=== PATIENT | female | born 1940 | race Caucasian/White ===

== ENCOUNTER 2024-07-17 22:24 | Emergency (ER) | payer MEDICARE, SELFPAY ==
[2024-07-17 22:28] VITALS: BP 123/51; BMI 25.6
[2024-07-17 22:29] VITALS: BP 123/51
[2024-07-17 23:00] VITALS: BP 137/74
--- NOTE | 2024-07-17 23:18 | ED.GENMED ---
History of Present Illness
General
Chief Complaint: Fall
Source: patient and jail records
Exam Limitations: none
Time Seen by Provider: 07/17/24 22:45
Nursing documentation reviewed up to this point in time: agreed with
History of Present Illness
History of Present Illness:
Patient is a 4-year-old female from a local jail who presents to the emergency department after being found on the floor and unwitnessed fall complaining of right hip pain. Patient denies any headache, neck pain or back pain. Patient
denies chest pain, shortness of breath, abdominal pain, nausea or vomiting.
Past History
Past History
ED Past Medical History: HTN, Hypothyroidism and Other (Dementia, depression)
Social History
Tobacco: Non-smoker
Living: jail
Review of Systems
Review of Systems
Unable to obtain full review of systems at this time due to: dementia
All Other Systems: Not applicable
Phy Exam
Physical Exam
Physical Exam:
Physical Exam
General: moderate distress, alert and appropriate, well nourished, well hydrated
HENT: Normocephalic and nontender, supple with no tracheal deviation or contusion
Eyes: Clear sclera, conjuctiva without injection
Heart: Regular rhythm and rate. No S3, S4. No murmur. No NVD
Lungs: No respiratory distress, no stridor, lung sounds clear and equal bilaterally, chest wall nontender
Abdomen: Soft, nontender, BS good
Neuro: Alert and oriented to person, CN II - XII intact, no motor focality
Skin: no wounds
Psychiatric: well kept. interactive and cooperative
Extremities: No edema, cyanosis. Right lower extremity externally rotated and shortened with tenderness over the right hip. Pelvis feels stable
Musculoskeletal: No cervical, thoracic or lumbar spine tenderness
Scores
Heart Failure Risk
Heart Failure Risk Score: Not Applicable
Heart Score for Chest Pain Patients
STEMI patient?: Not applicable
Withdrawal Assessment of Alcohol
Withdrawal Assessment Completed?: Not applicable
Course
Orders/Labs/Results
Orders:
Orders
07/17/24 22:51
Hip, Right 2-3 Views [CR Hip - RT w/wo Pel 2-3 Vw*] Urgent
Comment:
Reason For Exam: pain/tender after fall
Include a pelvis x-ray?: Yes
07/17/24 23:16
HYDROmorphone [Dilaudid] 0.5 mg IV NOW STA
Ondansetron Injectable [Zofran] 4 mg IV NOW STA
07/17/24 23:22
Complete Blood Count/With Diff Urgent
Comprehensive Metabolic Panel Urgent
07/17/24 23:42
Protime/PTT Urgent
Is patient on Coumadin/Warfarin: Unknown
Is the patient on Heparin?: Unknown
Comment: REDRAW
07/18/24 02:00
Flush (0.9% Sodium Chloride) [Flush (Nss)] See Dose Instructions IV PER PROTOCOL
07/18/24 04:54
Femur, Right 2 View [CR Femur - Right Min 2 Vw] Urgent
Comment:
Reason For Exam: fall
Abnormal Lab Results
07/17/24 07/18/24
00:02
MCHC 32.6 L g/dL
(33.0-37.0)
Abs Immat Gran (auto) 0.1 H 10^3/uL
(0-0.05)
Absolute Monos (auto) 0.8 H 10^3/uL
(0.1-0.6)
Immature Gran % 0.6 H %
(0-0.5)
PT 15.0 H Sec
(11.4-14.6)
Glucose 114 H mg/dl
(70-99)
07/17/24 23:22
07/17/24 23:22
Vital Signs
Initial and Last Documented VS:
Initial Vital Signs
Temp Pulse Resp BP Pulse Ox
98.0 F 90 16 123/51 95
07/17/24 22:28 07/17/24 22:28 07/17/24 22:28 07/17/24 22:28 07/17/24 22:28
Last Documented Vital Signs
Temp Pulse Resp BP Pulse Ox
98.0 F 94 19 112/55 99
07/17/24 22:28 07/18/24 04:00 07/18/24 04:00 07/18/24 04:00 07/18/24 03:00
*Radiology
Radiology exam reviewed: preliminary read by ED provider (Periprosthetic fracture of the right femur)
*Pulse Oximetry
Patient hypoxic: no
*EKG
Interpreted by ED Provider?: NA
*Telephone Appointment Clerk Interpretation
Rate: Telephone Appointment Clerk- N/A
*Critical Care Note
Total Time (30-74mins, 75-104mins- exclusive of procedures): Not Applicable
Update Note
Update Note:
Patient will be admitted.
Spoke with the hospitalist who accepted the patient onto their service however orthopedics deferred the patient to go to another hospital where her expertise in orthopedics could handle such a complicated case.
Had a long discussion with the patient's sister unsure whether it they would want her to have surgery or not and would prefer to make the decision after consult with an orthopedist. Additionally the patient does not want any resuscitation. At this
point will admit the patient for hip fracture is decision of what to do.
ED Attending Note
-
Portions of this chart may have been created with voice recognition software.� Occasional wrong word or��sound alike� substitutions may have occurred due to the inherent limitations of voice recognition software.
Discharge Plan
Departure
Patient Disposition: Admit
Date of Disposition: 07/18/24
Time of Disposition: 00:54
Admit to: Med/Surg
Admit to doctor: Hospitalist
Presentation/result/management discussed w/ accepting MD/DO: Hospitalist
Patient with high blood pressure during this ER visit?: No
Condition: Fair
Covid-19: Not Applicable
Discharge Problem:
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
Prescriptions:
No Action
paroxetine HCl [Paxil] 10 mg Tablet
10 mg PO DAILY
donepezil [Aricept] 10 mg Tablet
10 mg PO DAILY
quetiapine 100 mg Tablet
100 mg PO HS
aspirin 81 mg Capsule,Delayed Release(Dr/Ec)
81 mg PO DAILY
levothyroxine [Synthroid] 88 mcg Tablet
88 mcg PO DAILY
rosuvastatin [Crestor] 10 mg Tablet
10 mg PO DAILY
memantine [Namenda] 10 mg Tablet
10 mg PO BID
Referrals:
Carole Broussard CRNP [Family Provider] -
Interventions
Interventions:
*Risk Screen - Suicide Last Done: 07/17/24 22:28
*General Assessment Last Done: 07/17/24 22:28
*Neglect/Abuse Screening Last Done: 07/17/24 22:28
ED- Fall Risk Assessment Last Done: 07/17/24 22:33
*ED COVID-19 Vaccine History Last Done: 07/17/24 22:28
ED-Musculoskeletal Assessment Last Done: 07/18/24 03:28
ED- Neurological Assessment Last Done: 07/18/24 03:28
ED-Skin Assessment Last Done: 07/18/24 03:28
Discharge Date and Time
Print Language: ROMANIAN
[2024-07-17] MEDS: ZOFRAN 4 MG IV (23:20)
[2024-07-17] MEDS: DILAUDID 0.5 MG IV (23:20)
[2024-07-17 23:41] LABS: % Basophils 0.6 % (0-2); % Eosinophils 0.8 % (0-6); % Immature Granulocytes 0.6 % (0-0.5); % Lymphocytes 21.8 % (20.5-51.1); % Monocytes 8.8 % (1.7-9.3); % Neutrophils 67.4 % (42.2-75.2); Absolute Basophils 0.1 10^3/uL (0-0.2); Absolute Eosinophils 0.1 10^3/uL (0-0.7); Absolute Immature Granulocytes 0.1 10^3/uL (0-0.05); Absolute Lymphocytes 2.1 10^3/uL (1.2-3.4); Absolute Monocytes 0.8 10^3/uL (0.1-0.6); Absolute Neutrophils 6.4 10^3/uL (1.4-6.5); Hemoglobin 13.7 g/dL (12.0-16.0); Mean Corp Hgb Conc. 32.6 g/dL (33.0-37.0); Mean Corpuscular Hgb 30.5 pg (27.0-31.0); Mean Corpuscular Volume 93.5 fL (81.0-99.0); Mean Platelet Volume 10.1 fL (7.4-10.4); Nucleated Red Blood Cells % 0 %; Platelet Count 251 10^3/uL (130-400); Red Blood Cell Count 4.49 10^6/uL (4.20-5.40); White Blood Cell Count 9.6 10^3/uL (4.8-10.8)
[2024-07-17 23:46] LABS: ALT (SGPT) 24 U/L (0-35); AST (SGOT) 25 U/L (14-36); Alkaline Phosphatase 67 U/L (38-126); Blood Urea Nitrogen 10 mg/dl (7-17); Calcium 9.3 mg/dl (8.4-10.2); Carbon Dioxide 29 mmol/L (22-30); Chloride 100 mmol/L (98-107); Estimated Creatinine Clearance 40 ml/min; Glucose 114 mg/dl (70-99); Potassium 4.2 mmol/L (3.5-5.1); Sodium 137 mmol/L (135-145); Total Bilirubin 0.9 mg/dl (0.2-1.3); Total Protein 6.7 g/dl (6.3-8.2)
[2024-07-18] VITALS (10 sets, daily range): BP systolic 112–157; BP diastolic 55–87
[2024-07-18 00:35] LABS: INR 1.14
[2024-07-18 00:36] LABS: APTT 31.1 Sec (23.4-35.0)
[2024-07-18] MEDS: MORPHINE SULFATE 2 MG IV (06:16)
== END 2024-07-18 12:20 | disposition short-term general hospital (02) ==
LOC: EMR 22:24
PROVIDERS: EMERGENCY PHYSICIAN Emergency Medicine; FAMILY PHYSICIAN Nurse Practitioner Adult Health
DX: M97.01XA Periprosthetic fracture around internal prosthetic right hip joint, initial encounter (principal); W19.XXXA Unspecified fall, initial encounter; E03.9 Hypothyroidism, unspecified; I10 Essential (primary) hypertension; F03.90 Unspecified dementia, unspecified severity, without behavioral disturbance, psychotic disturbance, mood disturbance, and anxiety
CPT/HCPCS: 99285; 96374; 96375; 73502; 73552; 80053; 85025; 85610; 85730